=== PATIENT | male | born 1990 | race Caucasian/White ===

== ENCOUNTER → 2020-12-27 06:28 | Outpatient (CLI) | payer OTHER, SELFPAY ==
[2020-12-09 10:34] VITALS: BMI 33.7
--- NOTE | 2020-12-27 06:30 | MRI_ITS ---
STUDY: MRI RIGHT HAND REASON FOR EXAM: Male, 30 years old. rule out osteomylitis, right ring finger injury 8-10 wks ago, painful/ swelling distal finger TECHNIQUE: Standardized fat and water weighted pulse sequences were obtained in all 3 orthogonal planes. COMPARISON: Radiographs dated 12/09/2020. FINDINGS: Diffuse bone marrow edema is noted involving the entire fourth distal phalanx, compatible with osteomyelitis in the appropriate clinical setting. In the region of the head and neck of the fourth distal phalanx, there is an approximately 0.9 x 0.7 cm T1 hyperintense lesion, which may represent a Jorge abscess containing proteinaceous/bloody material in the setting of osteomyelitis. Other visualized bone marrow signal intensity is intact. On this unenhanced study, no discrete soft tissue fluid collection is seen to suggest a soft tissue abscess. The extensor and flexor digitorum tendons are intact. Muscle signal intensity is unremarkable. MRI/Upper Ext/No Jt/ wo IMPRESSION: Findings suggestive of osteomyelitis involving the entire fourth distal phalanx. Is cystic lesion in the fourth distal phalanx, likely a Jorge abscess. Electronically Signed: Alexander Helm MD at 2:24 EDT Tel , Service support ,
== END ==
PROVIDERS: PCP Nurse Practitioner Family; Referring Provider Orthopaedic Surgery; Visit Provider Orthopaedic Surgery
DX: M86.9 Osteomyelitis, unspecified (principal); S67.194A Crushing injury of right ring finger, initial encounter
CPT/HCPCS: 73218